=== PATIENT | female | born 1990 | race Caucasian/White ===

== ENCOUNTER 2019-07-04 08:02 | Inpatient (IN) ==
[2019-07-04] MEDS ORDERED: Famotidine 20 MG/2 ML VIAL IVP ONE (08:21)
[2019-07-04] MEDS ORDERED: Ringers Solution, Lactated 1,000 ML IVC ONE (08:21)
[2019-07-04] MEDS ORDERED: Metoclopramide 10 MG/2 ML VIAL IVP ONE (08:21)
[2019-07-04] MEDS ORDERED: Oxytocin 20 units/ LR 1000 mL 20 UNIT/1,000 ML BAG IVC ONE (08:21)
[2019-07-04] MEDS ORDERED: Ringers Solution, Lactated 1,000 ML IVC SCH ×2 (08:30→13:39)
[2019-07-04] MEDS ORDERED: Oxytocin 20 units/ LR 1000 mL 20 UNIT/1,000 ML BAG IVC SCH ×2 (08:30→13:39)
[2019-07-04] MEDS ORDERED: Ringers Solution, Lactated 1,000 ML ONE ×2 (08:42→09:29)
[2019-07-04 08:46] LABS: Basophils % 0.3 %; Eosinophils # 0.2 K/mcL (0.0-0.6); Eosinophils % 1.2 %; Hematocrit 41.2 % (35.3-44.9); Hemoglobin 13.1 g/dL (11.5-15.4); Immature Granulocytes % 0.6 % (0-4); Immature Platelets 24.8 % (1.1-6.1); Lymphocytes # 2.4 K/mcL (0.6-4.6); Lymphocytes % 18.9 %; Mean Corpuscular HGB Conc 31.8 g/dL (31.6-35.5); Mean Corpuscular Hemoglobin 27.7 pg (28.0-33.3); Mean Corpuscular Volume 87.1 fL (83.0-100.0); Mean Platelet Volume 14.1 fL (9.4-12.4); Monocytes # 1.1 K/mcL (0.0-1.3); Monocytes % 8.6 %; Platelet Count 154 K/mcL (140-400); Red Blood Count 4.73 M/mcL (3.82-4.97); Red Cell Distribution Width 14.1 % (11.5-14.5); Segmented Neutrophils % 70.4 %; White Blood Count 12.6 K/mcL (4.3-11.1)
[2019-07-04 08:48] LABS: Neutrophils # 8.9 K/mcL (1.6-8.9)
[2019-07-04] MEDS ORDERED: *HR* HYDROmorphone PF 0.5 MG/0.5 ML SYRINGE IVP PRN (09:10)
[2019-07-04] MEDS ORDERED: Ondansetron 4 MG/2 ML VIAL IVP PRN ×2 (09:10→13:39)
[2019-07-04] MEDS ORDERED: *HR* Promethazine 25 MG/ML VIAL IVP PRN (09:10)
[2019-07-04] MEDS ORDERED: Acetaminophen IV 1,000 MG/100 ML INFUS..BTL IVPB ONE (09:10)
[2019-07-04] MEDS ORDERED: *HR* FentaNYL (PF) 100 MCG/2 ML VIAL ONE (09:27)
[2019-07-04] MEDS ORDERED: *HR* Morphine Sulfate/PF 10 MG/10 ML AMPUL ONE (09:27)
[2019-07-04] MEDS ORDERED: Famotidine 20 MG/2 ML VIAL ONE (09:29)
[2019-07-04] MEDS ORDERED: *HR* Phenylephrine 10 MG/ML VIAL ONE (09:29)
[2019-07-04] MEDS ORDERED: *HR* Oxytocin 10 UNIT/ML VIAL IM ONE (09:30)
[2019-07-04] MEDS ORDERED: Dexamethasone 4 MG/ML VIAL ONE (10:14)
[2019-07-04] MEDS ORDERED: Ondansetron 4 MG/2 ML VIAL ONE (10:14)
[2019-07-04 12:30] LABS: Amphetamine Screen,Urine Negative ng/mL (Cutoff=1000); Barbiturate Screen,Urine Negative ng/mL (Cutoff=200); Benzodiazepines Screen,Urine Negative ng/mL (Cutoff=200); Cannabinoid Screen,Urine Negative ng/mL (Cutoff = 50); Cocaine Screen,Urine Negative ng/mL (Cutoff= 300); Opiate Screen,Urine Negative ng/mL (Cutoff=300); Phencyclidine Screen,Urine Negative ng/mL (Cutoff=25)
[2019-07-04] MEDS ORDERED: *HR* OxyCODONE/APAP 5/325 TABLET PO PRN (13:39)
[2019-07-04] MEDS ORDERED: Sennosides 8.6 MG TABLET PO PRN (13:39)
[2019-07-04] MEDS ORDERED: Simethicone 80 MG TAB.CHEW PO PRN (13:39)
[2019-07-04] MEDS ORDERED: Ibuprofen 600 MG TABLET PO PRN (13:39)
[2019-07-04] MEDS ORDERED: Metoclopramide 10 MG/2 ML VIAL IVP PRN (13:39)
[2019-07-04] MEDS: metroNIDAZOLE 500 MG TABLET PO SCH ×2 (14:57→20:44)
[2019-07-05 04:34] LABS: Basophils % 0.2 %; Eosinophils % 0.2 %; Lymphocytes % 11.4 %
[2019-07-05 04:36] LABS: Hematocrit 29.5 % (35.3-44.9); Hemoglobin 9.4 g/dL (11.5-15.4); Immature Granulocytes % 0.5 % (0-4); Immature Platelets 18.7 % (1.1-6.1); Mean Corpuscular HGB Conc 31.9 g/dL (31.6-35.5); Mean Corpuscular Volume 87.8 fL (83.0-100.0); Monocytes # 1.5 K/mcL (0.0-1.3); Monocytes % 8.6 %; Neutrophils # 13.7 K/mcL (1.6-8.9); Platelet Count 131 K/mcL (140-400); Red Blood Count 3.36 M/mcL (3.82-4.97); Red Cell Distribution Width 14.1 % (11.5-14.5); Segmented Neutrophils % 79.1 %; White Blood Count 17.3 K/mcL (4.3-11.1)
[2019-07-05 04:48] LABS: Large Platelets Present (Not Present); Platelet Estimate Slight Decrease (Normal)
[2019-07-05] MEDS: metroNIDAZOLE 500 MG TABLET PO SCH ×2 (07:50→14:50)
[2019-07-05] MEDS ORDERED: Prenatal Vit/FA 1 EACH TABLET PO SCH (09:00)
[2019-07-05 16:09] VITALS: BP 126/86
== END 2019-07-05 18:49 | disposition home or self-care (01) ==
LOC: 1NENULAB 08:02 → 1NENUOBS 14:01
PROVIDERS: ADMIT Obstetrics & Gynecology; ATTEND Obstetrics & Gynecology